=== PATIENT | female | born 1970 | race Caucasian/White ===

== ENCOUNTER 2021-10-08 16:48 | Emergency (ER) | payer MEDICAID ==
[~2021-10-08] VITALS: Ht 175.3 cm; Wt 83.9 kg
--- NOTE | 2021-10-08 17:21 | NUR ---
TO ER BED 3 FROM HOME C/O ABDOMINAL PAIN AND FREQUENT URINATION TODAY. PT CHNAGED INTO GOWN. CONNECTED TO MONITOR. AWAITING MD DUFFY
--- NOTE | 2021-10-08 17:22 | NUR ---
URINE SAMPLE COLLECTED AND SENT TO LAB
[2021-10-08] MEDS ORDERED: KETOROLAC TROMETHAMINE 15 MG/ML VIAL ONE (17:55)
[2021-10-08] MEDS ORDERED: KETOROLAC TROMETHAMINE INJ 30 MG/ML VIAL IM ONE (18:00)
[2021-10-08 18:50] LABS: CALCIUM, SERUM 8.8 mg/dL (8.5-10.1); CREATININE 0.9 mg/dL (0.6-1.3); POTASSIUM 3.6 mmol/L (3.5-5.1)
[2021-10-08 18:56] LABS: ALBUMIN 3.7 g/dL (3.4-5.0); BILIRUBIN,TOTAL 0.5 mg/dL (0.2-1.0); TOTAL PROTEIN, SERUM 7.6 g/dL (6.4-8.2)
[2021-10-08 19:07] LABS: BILIRUBIN,URINE NEGATIVE (NEGATIVE); COLOR,URINE YELLOW (YELLOW); LEUKOCYTE ESTERASE ,URINE NEGATIVE (NEGATIVE); NITRITE, URINE NEGATIVE (NEGATIVE); PH,URINE 7.5 (5.0-8.0); PROTEIN,URINE NEGATIVE (NEGATIVE); UGLUCOSE NEGATIVE (NEGATIVE); UROBILINOGEN,URINE 0.2 EU/dL (0.2)
[2021-10-08 19:25] LABS: BACTERIA,URINE None seen /HPF (None Seen); RBC,URINE 51-80 /HPF (0-2); SQUAMOUS EPITHELIAL CELL,UR 0-2 /HPF (None Seen); WBC,URINE 0-2 /HPF (0-3)
[2021-10-08 19:50] LABS: BASOPHILS % (AUTO) 0.6 % (0.0-2.0); EOSINOPHILS % (AUTO) 3.9 % (0.0-6.0); HEMATOCRIT 41 % (33-45); LYMPHOCYTES # (AUTO) 2.1 K/uL (0.8-4.8); LYMPHOCYTES % (AUTO) 28.3 % (20.0-44.0); MEAN CORPUSCULAR HGB CONC 34 g/dl (31.0-36.0); MEAN CORPUSCULAR VOLUME 93 fL (82-100); MONOCYTES # (AUTO) 0.3 K/uL (0.1-1.30); MONOCYTES % (AUTO) 4.5 % (2.0-12.0); NEUTROPHILS # (AUTO) 4.7 K/uL (1.8-8.9); NEUTROPHILS % (AUTO) 62.7 % (43.0-81.0); PLATELET COUNT (AUTO) 229 K/uL (150-450); RED BLOOD CELL COUNT(AUTO) 4.42 MIL/uL (4.0-5.2); WHITE BLOOD COUNT (AUTO) 7.5 K/uL (4.3-11.0)
[2021-10-08] MEDS ORDERED: CEPH500T PO (20:20)
[2021-10-08] MEDS ORDERED: PHEN-894 PO (20:27)
--- NOTE | 2021-10-08 20:41 | NUR ---
DISCAHRGE INSTRUCTIONS GIVEN WITH RX. PT DISCHARGED IN STABLE CONDITION.
[2021-10-08 20:42] VITALS: BP 135/65
== END 2021-10-08 20:42 | disposition home or self-care (01) ==
LOC: ER 16:56
DX: R35.0 Frequency of micturition (principal); R10.2 Pelvic and perineal pain; Z79.891 Long term (current) use of opiate analgesic; Z79.899 Other long term (current) drug therapy
CPT/HCPCS: 36415; 80053; 81001; 83690; 84703; 85025; 96372; 99284; J1885